=== PATIENT | male | born 1950 | race Two or more races ===

== ENCOUNTER 2019-05-04 10:07 | Inpatient (IN) | payer SELFPAY ==
[~2019-05-04] VITALS: Ht 154.9 cm; Wt 80.3 kg
[2019-05-04 11:59] LABS: HEMATOCRIT. 43.9 % (42.0-52.0); HEMOGLOBIN. 15.3 g/dL (14.0-18.0); MEAN CORPUSCULAR HEMOGLOBIN 31.4 pg (28.0-32.0); MEAN CORPUSCULAR VOLUME 90.2 fL (80.0-94.0); MEAN PLATELET VOLUME 9.3 fl (7.4-10.4); PLATELET 167 x1000/uL (130-400); RED BLOOD CELL COUNT 4.87 mill/uL (4.7-6.1); RED CELL DISTRIBUTION WIDTH 13.6 % (11.6-14.6)
[2019-05-04 12:02] LABS: CHLORIDE 103 mEq/L (98-107)
[2019-05-04 12:50] LABS: PLATELET ESTIMATE NORMAL
[2019-05-04] MEDS ORDERED: SODIUM CHLORIDE 0.9% 1000ML BAG (SEPSIS BOLUS) IV ONE (13:00)
[2019-05-04] MEDS ORDERED: LEVOFLOXACIN 750MG PREMIX 150 ML IV NR (13:00)
[2019-05-04] MEDS ORDERED: CEFTRIAXONE 2 G PREMIX 50 ML IV NR (13:00)
[2019-05-04] MEDS ORDERED: SODIUM CHLORIDE 0.9% 1,950 ML IV SCH (13:15)
[2019-05-04] MEDS ORDERED: ONDANSETRON HCL 4MG/2ML INJ IV PRN (14:45)
[2019-05-04] MEDS ORDERED: IOHEXOL-300 100 ML BOTTLE ONE (15:06)
[2019-05-04] MEDS: MORPHINE SULFATE 4 MG/ML CPJ (NOT FOR IM USE) IV PRN ×2 (15:24→22:05)
[2019-05-04] MEDS ORDERED: METRONIDAZOLE 500 MG PREMIX 100 ML IV NR (16:00)
[2019-05-04] MEDS ORDERED: ACETAMINOPHEN 325MG TABLET PO PRN (17:45)
[2019-05-04] MEDS ORDERED: POTASSIUM CHLORIDE 20MEQ TABLET SR PO NR (18:30)
[2019-05-04 20:01] LABS: CLARITY URINE CLEAR (CLEAR); COLOR URINE DARK YELLOW (YELLOW); KETONES URINE 1+ (NEGATIVE); LEUKOCYTE ESTERASE URINE NEGATIVE (NEGATIVE); NITRITE URINE NEGATIVE (NEGATIVE); OCCULT BLOOD URINE NEGATIVE (NEGATIVE); PH URINE 5.5 (4.5-8.0); PROTEIN URINE 2+ (NEGATIVE); SPECIFIC GRAVITY URINE 1.025 (1.005-1.030); UROBILINOGEN URINE 0.2 E.U./dL (0.2-1.0)
[2019-05-04 20:40] VITALS: BP 116/70
[2019-05-05] VITALS (7 sets, daily range): BP systolic 96–116; BP diastolic 51–70
[2019-05-05] MEDS: METRONIDAZOLE 500 MG PREMIX 100 ML IV SCH ×3 (01:21→18:22)
[2019-05-05 06:39] LABS: BASOPHILS % 0.6 % (0.0-2.0); EOSINOPHILS % 0.1 % (0.0-5.0); HEMATOCRIT. 39.1 % (42.0-52.0); HEMOGLOBIN. 13.9 g/dL (14.0-18.0); LYMPHOCYTES % 11.2 % (20.0-50.0); MEAN CORPUSCULAR HEMOGLOBIN 32.2 pg (28.0-32.0); MEAN CORPUSCULAR VOLUME 90.4 fL (80.0-94.0); MEAN PLATELET VOLUME 9.9 fl (7.4-10.4); MONOCYTES % 4.6 % (2.0-8.0); NEUTROPHILS % 83.5 % (40.0-76.0); PLATELET 162 x1000/uL (130-400); RED BLOOD CELL COUNT 4.32 mill/uL (4.7-6.1); RED CELL DISTRIBUTION WIDTH 13.4 % (11.6-14.6)
[2019-05-05 07:01] LABS: CHLORIDE 104 mEq/L (98-107)
[2019-05-05] MEDS ORDERED: LEVOFLOXACIN 500MG PREMIX 100 ML IV SCH (13:00)
[2019-05-06] VITALS: BP 97/59
[2019-05-06 00:04] LABS: *AMPHETAMINES SCREEN URINE NEGATIVE (NEGATIVE); *BARBITURATES SCREEN URINE NEGATIVE (NEGATIVE); *BENZODIAZEPINES SCREEN URINE NEGATIVE (NEGATIVE); *COCAINE SCREEN URINE NEGATIVE (NEGATIVE); CANNABINOID URINE SCREEN NEGATIVE (NEGATIVE); METHADONE URINE SCREEN NEGATIVE (NEGATIVE); OPIATES URINE SCREEN PRESUMTIVE POSITIVE (NEGATIVE)
[2019-05-06 00:05] LABS: PHENCYCLIDINE URINE SCREEN NEGATIVE (NEGATIVE)
[2019-05-06] MEDS: METRONIDAZOLE 500 MG PREMIX 100 ML IV SCH ×2 (02:43→11:37)
[2019-05-06 04:00] VITALS: BP 99/64
[2019-05-06 08:00] VITALS: BP_SYST 103; BP_SYST 124; BP_DIAS 60; BP_DIAS 83
[2019-05-06] MEDS: MORPHINE SULFATE 4 MG/ML CPJ (NOT FOR IM USE) IV PRN (08:49)
[2019-05-06 12:00] VITALS: BP 101/61
[2019-05-06] MEDS ORDERED: LEVOFLOXACIN 500MG PREMIX 100 ML IV SCH (13:00)
[2019-05-06] MEDS ORDERED: AZITHROMYCIN 500 MG TABLET PO SCH (14:00)
[2019-05-06 16:00] VITALS: BP 102/61
[2019-05-06 18:19] VITALS: BP 102/61
[2019-05-06] MEDS ORDERED: AZIT500T8 MT (18:32)
[2019-05-09 09:10] LABS: SACCHAROMYCES CEREVISIAE IGG 48.4 Units (0.0-24.9); SACCHAROMYCES CEREVISIAE IGM <20.0 Units (0.0-24.9)
[2019-05-09 13:06] LABS: ATYPICAL pANCA <1:20 titer (Neg:<1:20)
== END 2019-05-06 19:42 | disposition home or self-care (01) | DRG 720 ==
LOC: ER 10:07 → 5WST 14:34 → ENRESERV 19:52
PROVIDERS: ADMIT Internal Medicine; ATTEND Internal Medicine
DX: A41.9 Sepsis, unspecified organism (principal); E44.1 Mild protein-calorie malnutrition; K76.0 Fatty (change of) liver, not elsewhere classified; E87.1 Hypo-osmolality and hyponatremia; E87.6 Hypokalemia; K52.9 Noninfective gastroenteritis and colitis, unspecified; Z68.33 Body mass index [BMI] 33.0-33.9, adult
CPT/HCPCS: 36415; 71045; 74177; 76705; 80048; 80053; 80305; 81003; 83036; 83605; 83880; 84484; 85025; 86256; 86671; 87015; 87045; 87427; 87449; 87493; 87804; 93005; 96365; 96367; 96368; 96375; 99291; J0696; J1956; J2270; J2405; J3490; Q9967